=== PATIENT | female | born 1935 | race Caucasian/White ===

== ENCOUNTER → 2016-09-19 | Outpatient (CLI) | payer MEDICARE, BC ==
[~2016-09-19] MED LIST: ATEN1TAB75 PO; ATOR20TA42 PO; B12 SHOTS IM; CENTCHW3 PO; CLON.1 PO; COUM4TAB7 PO; COZA100T PO; FURO1TAB93 PO; LORA0.5T PO; LORTA5 PO; POTA-267 PO; VITA400T14 PO; [UNRECOGNIZED DRUG - CODE] PO
[2016-09-19 11:02] LABS: BLOOD GAS BASE EXCESS 5.3 mmol/L (-2-2); BLOOD GAS CARBOXYHEMOGLOBIN 2.1 % (0-4); BLOOD GAS HCO3 30 mmol/L (22-26); BLOOD GAS METHEMOGLOBIN 0.9 % (0-2); BLOOD GAS O2 HGB SATURATION 90 % (90-100); BLOOD GAS OXYGEN CONTENT 15.8 Vol % (12.0-20.0); BLOOD GAS PCO2 46 mmHG (38-42); BLOOD GAS PO2 69 mmHG (61-120); BLOOD GAS TOTAL HGB 12.4 G/DL (12.0-16.0); CRITICAL VALUE NO; DRAW SITE RT RADIAL; FIO2 21 %; NUMBER OF ARTERIAL PUNCTURES 1; OXYGEN DEVICE ROOM AIR; STAT NO; TEMP CORR TO 98.6; ULNAR PULSE PRESENT
--- NOTE | 2016-09-22 09:25 | RSPPFT ---
DATE OF PROCEDURE: 09/19/16 COMMENTS: VOLUMES DYNAMIC: FVC and FEV1 moderately reduced. STATIC: Unable to be performed. FLOWS: FEV1% mildly reduced; FEF 25-75 moderately reduced. DIFFUSION: Moderately reduced. FLOW VOLUME LOOP: Restrictive and obstructive pattern. IMPRESSION: This appears to be a combined obstructive and restrictive ventilatory defect but she clearly has airways obstruction and a good response to bronchodilator. There is a significant reduction in diffusion as well. Static lung volumes were not able to be performed by the patient.
== END ==
LOC: PHRSP 10:44
PROVIDERS: ATTEND Internal Medicine
DX: R06.02 Shortness of breath (principal); J44.9 Chronic obstructive pulmonary disease, unspecified
CPT/HCPCS: 36600; 82805; 94060; 94620; 94726; 94729

== ENCOUNTER 2016-12-31 18:47 | Inpatient (IN) | payer MEDICARE, BC ==
[~2016-12-31] VITALS: Ht 167.6 cm; Wt 84.4 kg
[2016-12-31 18:55] VITALS: BP 199/71; PULSE 69; RESP 15; TEMP 97.4; O2SAT 96
[2016-12-31] MEDS ORDERED: SODIUM CHLOR 0.9% 1000 ML INJ 1,000 ML IV SCH (19:16)
[2016-12-31] MEDS ORDERED: POTA10TA2 PO (19:22)
[2016-12-31] MEDS ORDERED: COZA100T PO (19:22)
[2016-12-31] MEDS ORDERED: HYDR-3516 PO (19:22)
[2016-12-31] MEDS ORDERED: WARF-58 PO (19:22)
[2016-12-31] MEDS ORDERED: GABA300C5 PO (19:22)
[2016-12-31] MEDS ORDERED: LORA-373 PO (19:22)
[2016-12-31] MEDS ORDERED: CLON0.1T PO (19:22)
[2016-12-31] MEDS ORDERED: MULTTAB67 PO (19:22)
[2016-12-31] MEDS ORDERED: ATEN100T PO (19:22)
[2016-12-31] MEDS ORDERED: ERGO2000 PO (19:22)
[2016-12-31] MEDS ORDERED: WARF-20 PO (19:22)
[2016-12-31] MEDS ORDERED: FURO40TA PO (19:22)
[2016-12-31] MEDS ORDERED: LIPI20TA PO (19:22)
[2016-12-31] MEDS ORDERED: OXYC1TAB63 PO (19:22)
[2016-12-31] MEDS ORDERED: SODIUM CHLORIDE 0.9% FLUSH 10 ML FLUSH IV FLUSH PRN ×2 (19:30→22:30)
[2016-12-31] MEDS ORDERED: MORPHINE SULFATE 4 MG/ML INJ IV PUSH ONE ×2 (19:30→21:30)
[2016-12-31] MEDS ORDERED: ONDANSETRON HCL 4 MG/2 ML VIAL IVP ONE (19:30)
--- NOTE | 2016-12-31 19:36 | PD ---
HPI Chief Complaint: Fall Time Seen by Provider: 19:16 Travel History International Travel<30 days: No Contact w/Intl Traveler<30days: No Traveled to known affect area: No History of Present Illness HPI The patient is an 81-year-old female that was walking her dog at 5:30 PM and stepped on a pine cone, slipped and fell. She complains of pain in her right shoulder, right humerus and right knee. There was no loss of consciousness. Specifically, she denies any neck pain. She did not hit her head. The patient is on Coumadin for atrial fibrillation. She complains of a constant, sharp throbbing pain at 8/10, primarily in her right shoulder.the patient lives alone at home. PFSH Past Medical History Atrial Fibrillation: Yes Cancer: Yes (left breast) Chemotherapy: No Diminished Hearing: Yes (VERY OR[place]SARARMIUT IN RT EAR) Hypertension: Yes Immunizations Current: No Radiation Therapy: Yes Tetanus Vaccination: > 5 Years Influenza Vaccination: Yes ?: Not Menopausal: Yes Past Surgical History Appendectomy: Yes Cholecystectomy: Yes Gynecologic Surgery: Yes (left breast lumpectomy r/t cancer) Hysterectomy: Yes Social History Alcohol Use: No Tobacco Use: No Substance Use: No Allergies-Medications (Allergen,Severity, Reaction): Coded Allergies: diltiazem (Unverified Allergy, Mild, 10/24/16) ezetimibe (Unverified Allergy, Mild, RASH, 10/24/16) hydrocodone (Unverified Allergy, Mild, 10/24/16) ibuprofen (Unverified Allergy, Mild, 10/24/16) levofloxacin (Unverified Allergy, Mild, RASH, 10/24/16) penicillin G (Unverified Allergy, Mild, RASH, 10/24/16) citalopram (Unverified Allergy, Unknown, 10/24/16) sertraline (Unverified Allergy, Unknown, 10/24/16) carvedilol (Unverified Adverse Reaction, Severe, ATRIAL FIBRILLATION EXACERBATION, 10/24/16) amlodipine (Unverified Adverse Reaction, Mild, FEET SWELL, 10/24/16) Uncoded Allergies: CRESTOR (Allergy, Mild, RASH, 06/28/07) NIASPAN (Allergy, Mild, HIVES, 02/16/06) PACERONE (Adverse Reaction, Severe, HAIR FELL OUT, 4/18/08) Reported Meds & Prescriptions Reported Meds & Active Scripts Active Reported Oxycodone-Acetaminophen 5-325 mg Tab 1 Tab PO Q6H PRN Potassium Chloride ER (Potassium Chloride) 10 Meq Tab 10 Meq PO DAILY Multiple Vitamin 1 Tab 1 Tab PO DAILY Cozaar (Losartan Potassium) 100 Mg Tab 100 Mg PO DAILY Lorazepam 0.5 Mg Tab 0.5 Mg PO HS PRN Hydrocodone-Acetaminophen 5-325 mg Tab 1 Tab PO Q6H PRN Gabapentin 300 Mg Cap 300 Mg PO HS Furosemide 40 Mg Tab 40 Mg PO DAILY Vitamin D2 (Ergocalciferol) 2,000 Unit Tab 2,000 Units PO DAILY Clonidine (Clonidine HCl) 0.1 Mg Tab 0.1 Mg PO BID Lipitor (Atorvastatin Calcium) 20 Mg Tab 20 Mg PO HS Atenolol 100 Mg Tab 100 Mg PO DAILY Warfarin 4 Mg Tab 4 Mg PO DAILY Warfarin 3 Mg Tab 3 Mg PO DAILY Review of Systems Except as stated in HPI: all other systems reviewed are Neg Physical Exam Narrative GENERAL: The patient is alert, oriented 3 in moderate apparent distress with her right shoulder discomfort. Her vital signs show blood pressure 199/71 but are otherwise normal. SKIN: Focused skin assessment warm/dry. There is an abrasion over the right knee without any associated bony deformity. HEAD: Atraumatic. Normocephalic. EYES: Pupils equal and round. No scleral icterus. No injection or drainage. ENT: No nasal bleeding or discharge. Mucous membranes pink and moist. NECK: Trachea midline. No JVD. CARDIOVASCULAR: Irregular rate and rhythm. No murmur appreciated. RESPIRATORY: No accessory muscle use. Clear to auscultation. Breath sounds equal bilaterally. GASTROINTESTINAL: Abdomen soft, non-tender, nondistended. Hepatic and splenic margins not palpable. MUSCULOSKELETAL: No obvious deformities. No clubbing. No cyanosis. No edema. There is generalized swelling and tenderness around the right shoulder, particularly at the proximal humerus. There is exquisite tenderness around the proximal humerus as it goes into the shoulder joint. Good capillary refill and pinprick is present distally on the right hand. She has good radial pulses present. NEUROLOGICAL: Awake and alert. No obvious cranial nerve deficits. Motor grossly within normal limits. Normal speech. PSYCHIATRIC: Appropriate mood and affect; insight and judgment normal. Data Data Last Documented VS Vital Signs Date Time Temp Pulse Resp B/P (MAP) Pulse Ox O2 Delivery O2 Flow Rate FiO2 12/31/16 18:55 97.4 69 15 199/71 (113) 96 Orders Orders Humerus (Min 2vws) (12/31/16 19:16) Basic Metabolic Panel (Bmp) (12/31/16 19:16) Complete Blood Count With Diff (12/31/16 19:16) Prothrombin Time / Inr (Pt) (12/31/16 19:16) Urinalysis - C+S If Indicated (12/31/16 19:16) Iv Access Insert/Monitor (12/31/16 19:16) Ecg Monitoring (12/31/16 19:16) Oximetry (12/31/16 19:16) Morphine Inj (Morphine Inj) (12/31/16 19:30) Ondansetron Inj (Zofran Inj) (12/31/16 19:30) Sodium Chlor 0.9% 1000 Ml Inj (Ns 1000 M (12/31/16 19:16) Sodium Chloride 0.9% Flush (Ns Flush) (12/31/16 19:30) Knee, Complete (4vws) (12/31/16 19:30) Shoulder, Limited(2vws) (12/31/16 19:16) Morphine Inj (Morphine Inj) (12/31/16 21:30) Ondansetron Inj (Zofran Inj) (12/31/16 21:30) Splint Or Brace Apply/Monitor (12/31/16 21:27) Labs Laboratory Tests Test 12/31/16 19:30 White Blood Count 10.8 TH/MM3 Red Blood Count 4.80 MIL/MM3 Hemoglobin 13.0 GM/DL Hematocrit 40.0 % Mean Corpuscular Volume 83.3 FL Mean Corpuscular Hemoglobin 27.1 PG Mean Corpuscular Hemoglobin Concent 32.6 % Red Cell Distribution Width 15.2 % Platelet Count 137 TH/MM3 Mean Platelet Volume 9.9 FL Neutrophils (%) (Auto) 76.9 % Lymphocytes (%) (Auto) 10.4 % Monocytes (%) (Auto) 9.5 % Eosinophils (%) (Auto) 0.6 % Basophils (%) (Auto) 2.6 % Neutrophils # (Auto) 8.3 TH/MM3 Lymphocytes # (Auto) 1.1 TH/MM3 Monocytes # (Auto) 1.0 TH/MM3 Eosinophils # (Auto) 0.1 TH/MM3 Basophils # (Auto) 0.3 TH/MM3 CBC Comment DIFF FINAL Differential Comment Prothrombin Time 18.0 SEC Prothromb Time International Ratio 1.6 RATIO Blood Urea Nitrogen 31 MG/DL Creatinine 0.95 MG/DL Random Glucose 130 MG/DL Calcium Level 9.4 MG/DL Sodium Level 139 MEQ/L Potassium Level 4.3 MEQ/L Chloride Level 102 MEQ/L Carbon Dioxide Level 30.8 MEQ/L Anion Gap 6 MEQ/L Estimat Glomerular Filtration Rate 56 ML/MIN MDM Medical Decision Making Medical Screen Exam Complete: Yes Emergency Medical Condition: Yes Medical Record Reviewed: Yes Differential Diagnosis Fracture elbow, fracture shoulder, fracture clavicle, fracture knee, subluxation patella, fracture patella, contusion knee, contusion shoulder- unlikely, dislocation shoulder, contusion elbow Rad Castro MD Dec 31, 2016 19:36
[2016-12-31 19:45] LABS: AUTOMATED NEUTROPHIL # 8.3 TH/MM3 (1.8-7.7); BASOPHIL # 0.3 TH/MM3 (0-0.2); BASOPHIL % 2.6 % (0.0-2.0); EOSINOPHIL # 0.1 TH/MM3 (0-0.4); EOSINOPHIL % 0.6 % (0.0-4.0); HEMO FLAGS DIFF FINAL; LYMPH % 10.4 % (9.0-44.0); LYMPHOCYTE # 1.1 TH/MM3 (1.0-4.8); MEAN CELL VOLUME 83.3 FL (80.0-100.0); MEAN CORPUSCULAR HEMOGLOBIN 27.1 PG (27.0-34.0); MEAN CORPUSCULAR HGB CONC 32.6 % (32.0-36.0); MONO % 9.5 % (0.0-8.0); NEUT % 76.9 % (16.0-70.0); PLATELET COUNT 137 TH/MM3 (150-450); RED CELL DISTRIBUTION WIDTH 15.2 % (11.6-17.2); WHITE BLOOD COUNT 10.8 TH/MM3 (4.0-11.0)
[2016-12-31 19:57] LABS: BICARBONATE 30.8 MEQ/L (21.0-32.0)
[2016-12-31 19:58] LABS: INTERNATIONAL NORMALIZED RATIO 1.6 RATIO
[2016-12-31 20:05] LABS: POTASSIUM 4.3 MEQ/L (3.5-5.1)
--- NOTE | 2016-12-31 20:59 | RADRPT ---
EXAM DATE/TIME: 12/31/2016 19:26 [facility] COMPARISON: No previous studies available for comparison. INDICATIONS : Trauma, fall. MEDICAL HISTORY : None. SURGICAL HISTORY : None. ENCOUNTER: Initial ACUITY: 1 day PAIN SCORE: 10/10 LOCATION: Right proximal humerus. FINDINGS: Comminuted fracture through the proximal humerus predominantly involving the humeral neck. No disloca tion. Bones osteopenic. No other humeral fractures. CONCLUSION: 1. Comminuted proximal humeral fracture with mild to moderate displacement. Moisés Levy MD on December 31, 2016 at 20:57 Board Certified Radiologist. This report was verified electronically.
--- NOTE | 2016-12-31 21:00 | RADRPT ---
EXAM DATE/TIME: 12/31/2016 19:56 [facility] COMPARISON: No previous studies available for comparison. INDICATIONS : Trauma, fall. MEDICAL HISTORY : None. SURGICAL HISTORY : None. ENCOUNTER: Initial ACUITY: 1 day PAIN SCORE: 10/10 LOCATION: Right shoulder. FINDINGS: Two view examination of the right shoulder demonstrates comminuted fracture of proximal humerus predo minantly involving the humeral neck with mild to moderate displacement. No dislocation of the humeral head identified. No other fractures are seen. Bones osteopenic. CONCLUSION: 1. Comminuted proximal right humeral fracture. Moisés Levy MD on December 31, 2016 at 20:58 Board Certified Radiologist. This report was verified electronically.
--- NOTE | 2016-12-31 21:01 | RADRPT ---
EXAM DATE/TIME: 12/31/2016 19:56 [facility] COMPARISON: No previous studies available for comparison. INDICATIONS : Trauma, fall. MEDICAL HISTORY : None. SURGICAL HISTORY : None. ENCOUNTER: Initial ACUITY: 1 day PAIN SCORE: 2/10 LOCATION: Right knee. FINDINGS: Four view examination of the right knee demonstrates no evidence of fracture or dislocation. Bony mi neralization is decreased. The articular surfaces are intact. The suprapatellar soft tissues have a normal configuration. CONCLUSION: 1. Osteopenia. No acute fracture. Moisés Levy MD on December 31, 2016 at 20:59 Board Certified Radiologist. This report was verified electronically.
[2016-12-31] MEDS ORDERED: ONDANSETRON HCL 4 MG/2 ML VIAL IV ONE (21:30)
[2016-12-31 21:45] VITALS: BP 171/73; PULSE 79; RESP 20; O2SAT 99
[2016-12-31] MEDS: SODIUM CHLOR 0.9% 1000 ML INJ 1,000 ML IV SCH (22:23)
[2016-12-31] MEDS ORDERED: BISACODYL 10 MG SUPP RECTAL PRN (22:30)
[2016-12-31] MEDS ORDERED: SENNOSIDES 8.6 MG TAB PO PRN (22:30)
[2016-12-31] MEDS ORDERED: ACETAMINOPHEN 325 MG TAB PO PRN (22:30)
[2016-12-31] MEDS ORDERED: LACTULOSE SYRUP 20 GM/30 ML CUP PO PRN (22:30)
[2016-12-31] MEDS ORDERED: ONDANSETRON HCL 4 MG/2 ML VIAL IVP PRN (22:30)
[2016-12-31] MEDS ORDERED: LORazepam 0.5 MG TAB PO PRN (22:30)
[2016-12-31] MEDS ORDERED: MAGNESIUM HYDROXIDE SUSP 30 ML CUP PO PRN (22:30)
[2016-12-31] MEDS ORDERED: MORPHINE SULFATE 2 MG/ML INJ IV PRN (23:00)
--- NOTE | 2016-12-31 23:02 | RADRPT ---
EXAM DATE/TIME: 12/31/2016 22:26 [facility] COMPARISON: No previous studies available for comparison. INDICATIONS : Right elbow pain. MEDICAL HISTORY : None. SURGICAL HISTORY : None. ENCOUNTER: Initial ACUITY: 1 day PAIN SCORE: 6/10 LOCATION: Right elbow. FINDINGS: Two view examination of the right elbow demonstrates no soft tissue swelling, joint effusion, fractur e or dislocation. Bony mineralization is normal. CONCLUSION: 1. Exam was performed at 2 obliquities but no displaced fracture is seen. Moisés Levy MD on December 31, 2016 at 22:59 Board Certified Radiologist. This report was verified electronically.
[2017-01-01] VITALS (8 sets, daily range): BP systolic 107–189; BP diastolic 50–80; PULSE 72–88; RESP 17–20; TEMP 96.5–97.4; O2SAT 92–96
[2017-01-01 00:37] LABS: BLOOD, URINE TRACE (NEG); GLUCOSE,URINE NEG (NEG); KETONE, URINE NEG (NEG); NITRITE,URINE NEG (NEG); PH, URINE 5.5 (5.0-8.5)
[2017-01-01 00:59] LABS: URINE COLOR YELLOW (YELLW/STRAW)
[2017-01-01 01:00] LABS: MUCUS URINE FEW /lpf (OCC); SQUAMOUS EPITHELIAL CELL URINE 0-5 /hpf (0-5)
[2017-01-01 01:01] LABS: RBC, URINE 0-3 /hpf (0-3)
[2017-01-01 01:02] LABS: COMMENT (UR) CULT NOT INDICATED; CULTURE IF INDICATED CULT NOT INDICATED
[2017-01-01] MEDS ORDERED: INSULIN HUMAN REGULAR 1,000 UNITS/10 ML VIAL SQ PRN (01:30)
[2017-01-01] MEDS ORDERED: CHLORHEXIDINE GLUCONATE 2 % 1 PACK (2 CLOTHS) TOPICAL PRN (01:30)
[2017-01-01] MEDS ORDERED: SODIUM CHLORID 0.9% 500 ML IV PRN (01:30)
[2017-01-01] MEDS ORDERED: LACTATED RINGER'S 1000 ML IV PRN (01:30)
[2017-01-01] MEDS ORDERED: POVIDONE IODINE 5% (ANTISEPSIS KIT) 4 APPLICATIONS EACH NARE PRN (01:30)
--- NOTE | 2017-01-01 02:15 | HHI.HP ---
[facility] Service [facility] Primary Care Physician Stephen Baker M.D. Admission Diagnosis comminuted fracture right proximal humerus, intractable pain, warfar Diagnoses: (1) Fracture of proximal end of right humerus Chief Complaint: right upper arm/shoulder pain, right knee pain Travel History International Travel<30 Days: No Contact w/Intl Traveler <30 Da: No Traveled to Known Affected Are: No History of Present Illness Ms. Mensah is a pleasant 81 y/o female who was walking her dog and tripped on a pine cone and landed on her right side on 12/31/16 at around 5 p.m. with subsequent severe sharp right arm and right knee pain causing her to be unable to get up. She reports pain is currently managed with PRN Morphine IV but worsens with any movement. Right shoulder and humerus x-ray at [place] [facility] showed comminuted proximal humerus fracture. The patient has a history of atrial fibrillation on Coumadin. INR is 1.6 on admission. The patient is seen in her hospital room after transfer from [place]. The patient is very upset about the experience she had in the [place] emergency room with the physician there. She states that she told him she wanted to be transferred to [facility] where all of her physicians are and he told her she had to come up to the main [facility] because he already had a bed for her here. Her PCP, Dr. Baker, does rounds on his own patients at [facility] and knows her very well. She wants to contact his office in the morning to work on a transfer. She states that she is going to refuse surgical intervention here and wants to be allowed to eat. She says she is very hungry. She is alert and oriented, cognitively intact, and capacitated to make her own medical decisions. She is refusing NPO status now and wants me to cancel her orthopedic surgeon consultation. Review of Systems Except as stated in HPI: all other systems reviewed are Neg Past Family Social History Past Medical History Right ear hearing impairment Atrial fibrillation on Coumadin Hypertension Right breast cancer - status post surgical resection and radiation . Past Surgical History Hysterectomy Appendectomy Cholecystectomy Right breast biopsy and lumpectomy Reported Medications Reported Meds & Active Scripts Active Reported Oxycodone-Acetaminophen 5-325 mg Tab 1 Tab PO Q6H PRN Potassium Chloride ER (Potassium Chloride) 10 Meq Tab 10 Meq PO DAILY Multiple Vitamin 1 Tab 1 Tab PO DAILY Cozaar (Losartan Potassium) 100 Mg Tab 100 Mg PO DAILY Lorazepam 0.5 Mg Tab 0.5 Mg PO HS PRN Hydrocodone-Acetaminophen 5-325 mg Tab 1 Tab PO Q6H PRN Gabapentin 300 Mg Cap 300 Mg PO HS Furosemide 40 Mg Tab 40 Mg PO DAILY Vitamin D2 (Ergocalciferol) 2,000 Unit Tab 2,000 Units PO DAILY Clonidine (Clonidine HCl) 0.1 Mg Tab 0.1 Mg PO BID Lipitor (Atorvastatin Calcium) 20 Mg Tab 20 Mg PO HS Atenolol 100 Mg Tab 100 Mg PO DAILY Warfarin 4 Mg Tab 4 Mg PO DAILY Warfarin 3 Mg Tab 3 Mg PO DAILY . Allergies: Coded Allergies: diltiazem (Unverified Allergy, Mild, 10/24/16) ezetimibe (Unverified Allergy, Mild, RASH, 10/24/16) hydrocodone (Unverified Allergy, Mild, 10/24/16) ibuprofen (Unverified Allergy, Mild, 10/24/16) levofloxacin (Unverified Allergy, Mild, RASH, 10/24/16) penicillin G (Unverified Allergy, Mild, RASH, 10/24/16) citalopram (Unverified Allergy, Unknown, 10/24/16) sertraline (Unverified Allergy, Unknown, 10/24/16) carvedilol (Unverified Adverse Reaction, Severe, ATRIAL FIBRILLATION EXACERBATION, 10/24/16) amlodipine (Unverified Adverse Reaction, Mild, FEET SWELL, 10/24/16) Uncoded Allergies: CRESTOR (Allergy, Mild, RASH, 06/28/07) NIASPAN (Allergy, Mild, HIVES, 02/16/06) PACERONE (Adverse Reaction, Severe, HAIR FELL OUT, 06/28/07) Active Ordered Medications Current Medications Morphine Sulfate (Morphine Inj) 4 mg ONCE ONCE IV PUSH Last administered on t 19:45; Start 12/31/16 at 19:30; Stop 12/31/16 at 19:31; Status DC Ondansetron HCl (Zofran Inj) 4 mg ONCE ONCE IVP Last administered on 19:44; Start 12/31/16 at 19:30; Stop 12/31/16 at 19:31; Status DC Sodium Chloride 1,000 ml @ 1,000 mls/hr Q1H IV Last administered on 19:44; Start 12/31/16 at 19:16; Stop 12/31/16 at 20:15; Status DC Sodium Chloride (NS Flush) 2 ml UNSCH PRN IV FLUSH FLUSH AFTER USING IV ACCESS Last administered on 12/31/16 19:45; Start 12/31/16 at 19:30 Morphine Sulfate (Morphine Inj) 4 mg ONCE ONCE IV PUSH Last administered on 21:32; Start 12/31/16 at 21:30; Stop 12/31/16 at 21:31; Status DC Ondansetron HCl (Zofran Inj) 4 mg ONCE ONCE IV Last administered on 21:32; Start 12/31/16 at 21:30; Stop 12/31/16 at 21:31; Status DC Sodium Chloride 1,000 ml @ 100 mls/hr Q10H IV Last administered on 12/31/16 22:23; Start 12/31/16 at 22:23 Sodium Chloride (NS Flush) 2 ml UNSCH PRN IV FLUSH FLUSH AFTER USING IV ACCESS ; Start 12/31/16 at 22:30 Sodium Chloride (NS Flush) 2 ml BID IV FLUSH ; Start 01/01/17 at 09:00 Ondansetron HCl (Zofran Inj) 4 mg Q6H PRN IVP NAUSEA OR VOMITING; Start at 22:30 Acetaminophen (Tylenol) 650 mg Q6H PRN PO FEVER/PAIN SCALE 1 TO 2; Start 12/31 at 22:30 Oxycodone/ Acetaminophen (Percocet 5-325 Mg) 1 tab Q6H PRN PO PAIN SCALE 3 TO 5 Last administered on 01/01/17 02:22; Start 12/31/16 at 22:30 Morphine Sulfate (Morphine Inj) 2 mg Q3H PRN IV PAIN 6-10 Last administered on 01/01/17 00:13; Start 12/31/16 at 23:00 Senna/Docusate Sodium (Deja-Colace) 1 tab BID PO ; Start 01/01/17 at 09:00 Magnesium Hydroxide (Milk Of Magnesia Liq) 30 ml Q12H PRN PO Mild constipation ; Start 12/31/16 at 22:30 Sennosides (Senokot) 17.2 mg Q12H PRN PO Moderate constipation; Start at 22:30 Bisacodyl (Dulcolax Supp) 10 mg DAILY PRN RECTAL SEVERE CONSITIPATION; Start 12/31/16 at 22:30 Lactulose (Lactulose Liq) 30 ml DAILY PRN PO SEVERE CONSITIPATION; Start 12/31 at 22:30 Atenolol (Tenormin) 100 mg DAILY PO ; Start 01/01/17 at 09:00 Atorvastatin Calcium (Lipitor) 20 mg HS PO ; Start 01/01/17 at 21:00 Clonidine (Catapres) 0.1 mg BID PO ; Start 01/01/17 at 09:00 Furosemide (Lasix) 40 mg DAILY PO ; Start 01/01/17 at 09:00 Gabapentin (Neurontin) 300 mg HS PO ; Start 01/01/17 at 21:00 Lorazepam (Ativan) 0.5 mg HS PRN PO ANXIETY AND/OR INSOMNIA Last administered on 01/01/17t 00:13; Start 12/31/16 at 22:30 Losartan Potassium (Cozaar) 100 mg DAILY PO ; Start 01/01/17 at 09:00 Ergocalciferol (Calciferol Liq) 2,000 units DAILY PO ; Start 01/01/17 at 09:00 Multivitamins (Theragran) 1 tab DAILY PO ; Start 01/01/17 at 09:00 Lactated Ringer's 1,000 ml @ 30 mls/hr Q24H PRN IV SEE LABEL COMMENTS; Start 01/01/17 at 01:30; Stop 01/04/17 at 01:29 Sodium Chloride 500 ml @ 30 mls/hr [id number] PRN IV SEE LABEL COMMENTS; Start at 01:30; Stop 01/04/17 at 01:29 Povidone Iodine (Betadine 5% Antisepsis Kit) 1 applic ENVIRONMENTAL ASSOCIATE PRN EACH NARE SEE LABEL COMMENTS; Start 01/01/17 at 01:30; Stop 01/04/17 at 01:29 Chlorhexidine Gluconate (Chlorhexidine 2% Cloth) 3 pack ENVIRONMENTAL ASSOCIATE PRN TOPICAL SEE LABEL COMMENTS; Start 01/01/17 at 01:30; Stop 01/04/17 at 01:29 Insulin Human Regular (NovoLIN R INJ) See Protocol Table ... ENVIRONMENTAL ASSOCIATE PRN SQ SEE PROTOCOL TABLE; Start 01/01/17 at 01:30; Stop 01/04/17 at 01:29 . Family History Sister with Hodgkin's lymphoma, age 34 . Social History Retired [employer] worker Smoked 1 1/2 PPD for 20 years, quit 1973 ETOH: none since 1979 . Physical Exam Vital Signs Vital Signs Date Time Temp Pulse Resp B/P (MAP) Pulse Ox O2 Delivery O2 Flow Rate FiO2 01/01/17 00:30 74 20 189/79 (115) 97 Nasal Cannula 2.00 01/01/17 00:20 20 12/31/16 21:45 79 20 171/73 (105) 99 12/31/16 20:00 70 20 98 12/31/16 18:55 97.4 69 15 199/71 (113) 96 Physical Exam GENERAL: This is a well-nourished, well-developed patient, in no apparent distress. SKIN: No rashes. Cool and dry. Right proximal humerus area with extensive dark bruising. HEAD: Atraumatic. Normocephalic. EYES: No scleral icterus. No injection or drainage. ENT: Nose without bleeding, purulent drainage. NECK: Trachea midline. No JVD. CARDIOVASCULAR: Regular rate and rhythm without murmurs, gallops, or rubs. RESPIRATORY: Clear to auscultation. Breath sounds equal bilaterally. No wheezes , rales, or rhonchi. GASTROINTESTINAL: Abdomen soft, non-tender, nondistended. No guarding. MUSCULOSKELETAL: Extremities without clubbing, cyanosis. No calf tenderness. Right upper arm with pain with minimal movement, swelling noted, still has sensation and movement in fingers and capillary refill is less than 3 seconds. NEUROLOGICAL: Awake and alert. Motor and sensory grossly within normal limits. Normal speech. . Laboratory Laboratory Tests Test 12/31/16 19:30 White Blood Count 10.8 Red Blood Count 4.80 Hemoglobin 13.0 Hematocrit 40.0 Mean Corpuscular Volume 83.3 Mean Corpuscular Hemoglobin 27.1 Mean Corpuscular Hemoglobin Concent 32.6 Red Cell Distribution Width 15.2 Platelet Count 137 Mean Platelet Volume 9.9 Neutrophils (%) (Auto) 76.9 Lymphocytes (%) (Auto) 10.4 Monocytes (%) (Auto) 9.5 Eosinophils (%) (Auto) 0.6 Basophils (%) (Auto) 2.6 Neutrophils # (Auto) 8.3 Lymphocytes # (Auto) 1.1 Monocytes # (Auto) 1.0 Eosinophils # (Auto) 0.1 Basophils # (Auto) 0.3 CBC Comment DIFF FINAL Differential Comment Prothrombin Time 18.0 Prothromb Time International Ratio 1.6 Blood Urea Nitrogen 31 Creatinine 0.95 Random Glucose 130 Calcium Level 9.4 Sodium Level 139 Potassium Level 4.3 Chloride Level 102 Carbon Dioxide Level 30.8 Anion Gap 6 Estimat Glomerular Filtration Rate 56 Result Diagram: 12/31/16192912/31/161929 Imaging Last Impressions Elbow X-Ray 12/31/162200 Signed Impressions: Service Date/Time: Saturday, December 31, 2016 22:26 - CONCLUSION: 1. Exam was performed at 2 obliquities but no displaced fracture is seen. Moisés Levy MD Knee X-Ray 12/31/161929 Signed Impressions: Service Date/Time: Saturday, December 31, 2016 19:56 - CONCLUSION: 1. Osteopenia. No acute fracture. Moisés Levy MD Shoulder X-Ray 12/31/161915 Signed Impressions: Service Date/Time: Saturday, December 31, 2016 19:56 - CONCLUSION: 1. Comminuted proximal right humeral fracture. Moisés Levy MD Humerus X-Ray 12/31/161915 Signed Impressions: Service Date/Time: Saturday, December 31, 2016 19:26 - CONCLUSION: 1. Comminuted proximal humeral fracture with mild to moderate displacement. Moisés Levy MD . Caprini VTE Risk Assessment Caprini VTE Risk Assessment: Mod/High Risk (score >= 2) Caprini Risk Assessment Model Point Value = 1 Point Value = 2 Point Value = 3 Point Value = 5 Age 41-60 Minor surgery BMI > 25 kg/m2 Swollen legs Varicose veins or History of unexplained or recurrent spontaneous Oral contraceptives or hormone replacement Sepsis (< 1 month) Serious lung disease, including pneumonia (< 1 month) Abnormal pulmonary function Acute myocardial infarction Congestive heart failure (< 1 month) History of inflammatory bowel disease Medical patient at bed rest Age 61-74 Arthroscopic surgery Major open surgery (> 45 min) Laparoscopic surgery (> 45 min) Malignancy Confined to bed (> 72 hours) Immobilizing plaster cast Central venous access Age >= 75 History of VTE Family history of VTE Factor V Leiden Prothrombin [id number] Lupus anticoagulant Anticardiolipin antibodies Elevated serum homocysteine Heparin-induced thrombocytopenia Other congenital or acquired thrombophilia Stroke (< 1 month) Elective arthroplasty Hip, pelvis, or leg fracture Acute spinal cord injury (< 1 month) Prophylaxis Regimen Total Risk Factor Score Risk Level Prophylaxis Regimen 0-1 Low Early ambulation 2 Moderate Order ONE of the following: *Sequential Compression Device (SCD) *Heparin 5000 units SQ BID 3-4 Higher Order ONE of the following medications: *Heparin 5000 units SQ TID *Enoxaparin/Lovenox 40 mg SQ daily (WT < 150 kg, CrCl > 30 mL/min) *Enoxaparin/Lovenox 30 mg SQ daily (WT < 150 kg, CrCl > 10-29 mL/min) *Enoxaparin/Lovenox 30 mg SQ BID (WT < 150 kg, CrCl > 30 mL/min) AND/OR *Sequential Compression Device (SCD) 5 or more Highest Order ONE of the following medications: *Heparin 5000 units SQ TID (Preferred with Epidurals) *Enoxaparin/Lovenox 40 mg SQ daily (WT < 150 kg, CrCl > 30 mL/min) *Enoxaparin/Lovenox 30 mg SQ daily (WT < 150 kg, CrCl > 10-29 mL/min) *Enoxaparin/Lovenox 30 mg SQ BID (WT < 150 kg, CrCl > 30 mL/min) AND *Sequential Compression Device (SCD) Assessment and Plan Problem List: (1) Fracture of proximal end of right humerus ICD Code: S42.201A - Unspecified fracture of upper end of right humerus, initial encounter for closed fracture Assessment and Plan Fracture of proximal end of right humerus - Patient desires transfer to [facility] for management - Case management consulted - Orthopedic surgery consult canceled at patient's request - Patient refuses nothing by mouth status and a heart healthy diet has been ordered home medications restarted - Coumadin on hold for possible surgical intervention at [facility] if patient can be transferred. DVT prophylaxis - SCDs/TEDs . Discussed Condition With Patient, Dr. Jaquez, and RN . Physician Certification 2 Midnight Certification Type: Admission for Inpatient Services Order for Inpatient Services The services are ordered in accordance with Medicare regulations or non- Medicare payer requirements, as applicable. In the case of services not specified as inpatient-only, they are appropriately provided as inpatient services in accordance with the 2-midnight benchmark. Estimated LOS (days): 2 days is the estimated time the patient will need to remain in the hospital, assuming treatment plan goals are met and no additional complications. Post-Hospital Plan: Other (specify) Bibi Tran Jan 01, 2017 02:15
[2017-01-01] MEDS: oxyCODONE/ACETAMINOPHEN 5 MG/325 MG TAB PO PRN ×3 (02:22→19:15)
[2017-01-01] MEDS ORDERED: ATENOLOL 100 MG TAB PO SCH (09:00)
[2017-01-01] MEDS: ERGOCALCIFEROL (VIT D2) 8,000 UNITS/ML 60 ML BTL PO SCH (09:00)
[2017-01-01] MEDS: SODIUM CHLORIDE 0.9% FLUSH 10 ML FLUSH IV FLUSH SCH ×2 (09:00→21:00)
[2017-01-01] MEDS: FUROSEMIDE 40 MG TAB PO SCH (09:00)
[2017-01-01] MEDS: DOCUSATE SODIUM 50 MG/SENNA 8.6 MG TAB PO SCH ×2 (09:07→21:57)
[2017-01-01] MEDS: MULTIVITAMIN TAB PO SCH (09:07)
[2017-01-01] MEDS: LOSARTAN 50 MG TAB PO SCH (09:10)
[2017-01-01] MEDS: cloNIDine HCL 0.1 MG TAB PO SCH ×2 (09:12→21:00)
[2017-01-01] MEDS: SODIUM CHLOR 0.9% 1000 ML INJ 1,000 ML IV SCH (09:18)
--- NOTE | 2017-01-01 12:58 | MB ---
cc: ZEESHAN OWUSU DATE OF CONSULTATION 12/31/2016 DATE OF CONSULTATION 01/01/2017 REASON FOR CONSULTATION Right proximal humerus fracture. CONSULTING PHYSICIAN Dr. Jaquez. HISTORY Ms. Marianela Mensah is an 81-year-old female who was walking her dog yesterday. She tripped on a pine cone and lost her balance. She landed on her right side. She had immediate right shoulder pain. She presented to the emergency room where x-rays revealed a right proximal humerus fracture. She is currently awake and alert on the orthopedic floor. Her only complaint is her right shoulder. Her pain is worse with movement and is improved with rest. She denies any dizziness, syncope or loss of consciousness. PAST MEDICAL HISTORY ILLNESSES 1. Hearing impairment. 2. Atrial fibrillation. 3. Hypertension. 4. History of breast cancer. PAST SURGICAL HISTORY 1. Hysterectomy. 2. Appendectomy. 3. Cholecystectomy. 4. Right breast lumpectomy. MEDICATIONS 1. Percocet. 2. Potassium. 3. Cozaar. 4. Gabapentin. 5. Lasix. 6. Vitamin D. 7. Clonidine. 8. Lipitor. 9. Atenolol. 10. Coumadin. ALLERGIES Please see list of allergies which includes - DILTIAZEM. CRESTOR. NIASPAN. PACERONE AMLODIPINE. CARVEDILOL. CITALOPRAM. IBUPROFEN. LEVOFLOXACIN. PENICILLIN. SERTRALINE. FAMILY HISTORY Positive for lymphoma in a sister. SOCIAL HISTORY The patient has a history of smoking but quit in 1973. She denies alcohol or drug use. REVIEW OF SYSTEMS The patient denies headache, visual changes, neck pain, chest pain, shortness of breath, abdominal pain, nausea or vomiting or recent weight loss. No numbness or tingling of the extremities. She complains of right shoulder pain. Pain is worse with movement. PHYSICAL EXAMINATION GENERAL: The patient is a pleasant 81-year-old female in no acute distress. She is awake and alert. She is alert and oriented x3. She appears well-developed, well-nourished. VITAL SIGNS: Temperature 96.5, pulse 86, respirations 17, blood pressure 136/67, O2 sat 96% on 2 liters via nasal cannula. HEAD: The patient is normocephalic. Pupils are equal. NECK: Soft, nontender. Trachea is midline. ABDOMEN: Soft, nontender, nondistended. EXTREMITIES: Examination of the right arm reveals swelling and bruising around her right shoulder. She has pain with any shoulder motion. She has no tenderness to her elbow, wrist or finger. She has intact sensation in all fingers. He has good capillary refill in all fingers. Sensation is intact in all fingers. Examination of left arm reveals no pain with shoulder, elbow or wrist motion. Skin is intact. Radial pulse is palpable. Sensation is intact. Radial pulses palpable. Examination of bilateral lower extremities reveals no significant pain with hip, knee or ankle motion. Sensation is intact in both feet. Dorsalis pedis pulses are palpable. She has a small abrasion over her anterior right knee pain. X-RAYS X-rays of the right shoulder were reviewed. X-rays reveal a mildly comminuted, mildly displaced right proximal humerus fracture. IMPRESSION 1. Postmenopausal osteoporosis. 2. Right proximal humerus fracture. 3. Hypertension. 4. Atrial fibrillation. PLAN The treatment options were discussed with the patient. At this point I would recommend nonsurgical treatment. The fracture is relatively well-aligned. I would recommend a sling and swath. She should not do any active motion of her right arm. She will need followup x-rays in approximately two weeks. All questions were answered. A mid-level provider in my office, nurse practitioner or PA, may see this patient on a follow-up basis and continue to implement the objective of this plan including: Starting or adjusting medications, injections of muscle, tendon, bursa or joints, cast application, orthotic or brace application, physical therapy, further radiographic studies including x-ray, MRI, CT, ultrasounds or bone scan, vascular studies, neurologic studies, or other specialist consultations, and proceeding with surgical management as appropriate. MD DORETHA Devine/JOSE /12:20 PM /12:42 PM
[2017-01-01] MEDS ORDERED: OXYC1TAB63 PO (13:51)
--- NOTE | 2017-01-01 13:55 | HHI.PR ---
Subjective Remarks Follow-up orthopedic injury. Pain increased with movement. Denies numbness. Patient lives alone. Discussed with RN Objective Vitals Vital Signs Date Time Temp Pulse Resp B/P (MAP) Pulse Ox O2 Delivery O2 Flow Rate FiO2 01/01/17 12:00 96.5 86 17 136/67 (90) 96 01/01/17 07:55 96.5 88 20 143/63 (89) 95 01/01/17 03:49 Nasal Cannula 2.00 01/01/17 03:45 96.6 85 18 140/78 (98) 96 01/01/17 03:22 17 01/01/17 00:54 96.6 87 18 187/80 (115) 94 01/01/17 00:30 74 20 189/79 (115) 97 Nasal Cannula 2.00 01/01/17 00:20 20 12/31/16 21:45 79 20 171/73 (105) 99 12/31/16 20:00 70 20 98 12/31/16 18:55 97.4 69 15 199/71 (113) 96 I/O 12/31/16 12/31/16 12/31/16 01/01/17 01/01/17 01/01/17 07:00 15:00 23:00 07:00 15:00 23:00 Intake Total 1000.5 ml Output Total 200 ml Balance 800.5 ml Intake Oral 0 ml IV Total 1000.5 ml Output Urine Total 200 ml # Voids 2 # Bowel Movements 0 Result Diagram: 12/31/16192912/31/161929 Imaging Last Impressions Elbow X-Ray 12/31/162200 Signed Impressions: Service Date/Time: Saturday, December 31, 2016 22:26 - CONCLUSION: 1. Exam was performed at 2 obliquities but no displaced fracture is seen. Moisés Levy MD Knee X-Ray 12/31/161929 Signed Impressions: Service Date/Time: Saturday, December 31, 2016 19:56 - CONCLUSION: 1. Osteopenia. No acute fracture. Moisés Levy MD Shoulder X-Ray 12/31/161915 Signed Impressions: Service Date/Time: Saturday, December 31, 2016 19:56 - CONCLUSION: 1. Comminuted proximal right humeral fracture. Moisés Levy MD Humerus X-Ray 12/31/161915 Signed Impressions: Service Date/Time: Saturday, December 31, 2016 19:26 - CONCLUSION: 1. Comminuted proximal humeral fracture with mild to moderate displacement. Moisés Levy MD Objective Remarks GENERAL: This is a well-nourished, well-developed patient, in no apparent distress. SKIN: No rashes. Cool and dry. Right proximal humerus area with extensive dark bruising. HEAD: Atraumatic. Normocephalic. EYES: No scleral icterus. No injection or drainage. ENT: Nose without bleeding, purulent drainage. NECK: Trachea midline. No JVD. CARDIOVASCULAR: Irregularly irregular without murmur RESPIRATORY: Clear to auscultation. Breath sounds equal bilaterally. No wheezes , rales, or rhonchi. GASTROINTESTINAL: Abdomen soft, non-tender, nondistended. No guarding. MUSCULOSKELETAL: Extremities without clubbing, cyanosis. No calf tenderness. Right upper arm with pain with minimal movement, swelling noted, still has sensation and movement in fingers and capillary refill is less than 3 seconds. NEUROLOGICAL: Awake and alert. Motor and sensory grossly within normal limits. Normal speech. Procedures none A/P Problem List: (1) Fracture of proximal end of right humerus ICD Code: S42.201A - Unspecified fracture of upper end of right humerus, initial encounter for closed fracture Assessment and Plan Fracture of proximal end of right humerus. Orthopedic surgery recommended nonsurgical management. Non-weightbearing. Elevation of right upper extremity with sling and swath. Pain management with Lortab counseled regarding narcotics. Outpatient follow-up. PT, OT and case management consults A. fib. Restart Coumadin keep INR between 2 and 3 Chronic medical conditions of hypertension and hyperlipidemia. Stable continue home medications. Hyperglycemia. This is nonfasting. Obtain fasting glucose Mild thrombocytopenia. Outpatient follow-up DVT prophylaxis - SCDs/TEDs. Coumadin Discharge Planning Discharge patient to home with PT, OT and visiting nurse Condition on discharge: Improved Regular Diet as tolerated Ad Delmy activity. NWB RUE Rx written: Lortab Follow-up with primary care physician and ortho 1 week Chris Corley MD Jan 01, 2017 13:55
--- NOTE | 2017-01-01 13:56 | HHI.FF ---
Face to Face Verification Diagnosis: (1) Fracture of proximal end of right humerus Physical Therapy Order: Evaluate and Treat, Improve ambulation Occupational Therapy Order: Evaluate and Treat, Improve ADL, Fine motor coordination Home Health Nursing Order: Medical education Signs/symptoms of disease process Medication education-adverse effect Nursing assessment with vital signs I have seen patient Marianela Mensah on 01/01/17. My clinical findings support the need for the requested home health care services because: Ltd mobility - disease progression Deconditioned w/ increased weakness I certify that my clinical findings support that this patient is homebound because: Unsteady gait/balance Unsafe to leave home unassisted Chris Corley MD Jan 01, 2017 13:56
--- NOTE | 2017-01-01 13:56 | HHI.DCPOC ---
Discharge Care Plan Diagnosis: (1) Fracture of proximal end of right humerus Your Health Problems Are: Difficulty with ADL Exercise Tolerance Goals to Promote Your Health * To prevent worsening of your condition and complications * To maintain your health at the optimal level Directions to Meet Your Goals Take your medications as prescribed Follow your dietary instruction Follow activity as directed Keep your appointments as scheduled Take your immunizations and boosters as scheduled If your symptoms worsen call your PCP, if no PCP go to Urgent Care Center or Emergency Room Smoking is Dangerous to Your Health. Avoid second hand smoke Call the 24-hour hour crisis hotline for domestic abuse at Chris Corley MD Jan 01, 2017 13:56
[2017-01-01] MEDS ORDERED: WARFARIN SOD 5 MG TAB PO ONE (16:00)
[2017-01-01] MEDS: ATORVASTATIN 20 MG TAB PO SCH (21:56)
[2017-01-01] MEDS: GABAPENTIN 300 MG CAP PO SCH (21:56)
[2017-01-01] MEDS: ATENOLOL 100 MG TAB PO SCH (21:57)
[2017-01-02] VITALS (7 sets, daily range): BP systolic 97–158; BP diastolic 50–87; PULSE 75–85; RESP 17–18; TEMP 96–99.6; O2SAT 93–96
--- NOTE | 2017-01-02 07:12 | PD.ORT.PN ---
Subjective Subjective Remarks s/p fall at home right shoulder pain. states rolled over on it last night and cause pain Objective Vitals Vital Signs Date Time Temp Pulse Resp B/P (MAP) Pulse Ox O2 Delivery O2 Flow Rate FiO2 01/02/17 01:01 97.8 85 17 126/66 (86) 93 01/01/17 21:31 96 Nasal Cannula 2.00 01/01/17 20:00 97.1 83 18 160/72 (101) 92 01/01/17 16:00 97.4 72 17 107/50 (69) 96 01/01/17 12:00 96.5 86 17 136/67 (90) 96 01/01/17 07:55 96.5 88 20 143/63 (89) 95 I/O 01/01/17 01/01/17 01/01/17 01/02/17 01/02/17 01/02/17 07:00 15:00 23:00 07:00 15:00 23:00 Intake Total 1000.5 ml 240 ml Output Total 200 ml Balance 800.5 ml 240 ml Intake Oral 0 ml 240 ml IV Total 1000.5 ml Output Urine Total 200 ml # Voids 2 2 2 # Bowel Movements 0 0 Result Diagram: 12/31/16192912/31/161929 Objective Remarks RUE: +sling/swathe. nvi Assessment & Plan Assessment and Plan 1) Right Proximal humerus Fx - nonop -NWB -maintain sling/swathe -pain control -patient lives alone and will need SNF - for rehab placement -ortho cleared for DC to SNF once arranged -f/u with Dr Albarado or PA for repeat xrays in 2 weeks Baldo Rubin Jan 02, 2017 07:12
[2017-01-02] MEDS: MULTIVITAMIN TAB PO SCH (08:03)
[2017-01-02] MEDS: FUROSEMIDE 40 MG TAB PO SCH (08:03)
[2017-01-02] MEDS: LOSARTAN 50 MG TAB PO SCH (08:03)
[2017-01-02] MEDS: DOCUSATE SODIUM 50 MG/SENNA 8.6 MG TAB PO SCH ×2 (08:03→21:17)
[2017-01-02] MEDS: oxyCODONE/ACETAMINOPHEN 5 MG/325 MG TAB PO PRN ×2 (08:03→21:15)
[2017-01-02] MEDS: cloNIDine HCL 0.1 MG TAB PO SCH ×2 (08:03→21:00)
[2017-01-02] MEDS: SODIUM CHLORIDE 0.9% FLUSH 10 ML FLUSH IV FLUSH SCH ×2 (08:07→21:00)
[2017-01-02] MEDS: ERGOCALCIFEROL (VIT D2) 8,000 UNITS/ML 60 ML BTL PO SCH (08:08)
[2017-01-02 09:18] LABS: AUTOMATED NEUTROPHIL # 7.8 TH/MM3 (1.8-7.7); BASOPHIL # 0.1 TH/MM3 (0-0.2); BASOPHIL % 0.9 % (0.0-2.0); EOSINOPHIL # 0.3 TH/MM3 (0-0.4); EOSINOPHIL % 2.7 % (0.0-4.0); HEMO FLAGS DIFF FINAL; LYMPH % 12.8 % (9.0-44.0); LYMPHOCYTE # 1.4 TH/MM3 (1.0-4.8); MEAN CELL VOLUME 84.7 FL (80.0-100.0); MEAN CORPUSCULAR HGB CONC 33.1 % (32.0-36.0); MONO % 14.1 % (0.0-8.0); NEUT % 69.5 % (16.0-70.0); PLATELET COUNT 129 TH/MM3 (150-450); RED BLOOD COUNT 3.78 MIL/MM3 (4.00-5.30); RED CELL DISTRIBUTION WIDTH 15.7 % (11.6-17.2); WHITE BLOOD COUNT 11.2 TH/MM3 (4.0-11.0)
[2017-01-02 09:19] LABS: INTERNATIONAL NORMALIZED RATIO 1.9 RATIO; PROTHROMBIN TIME - PATIENT 22.1 SEC (9.8-11.6)
[2017-01-02 10:21] LABS: BICARBONATE 28.3 MEQ/L (21.0-32.0); POTASSIUM 3.7 MEQ/L (3.5-5.1)
[2017-01-02 10:39] LABS: MAGNESIUM 1.6 MG/DL (1.5-2.5)
--- NOTE | 2017-01-02 12:54 | RADRPT ---
EXAM DATE/TIME: 01/02/2017 11:30 [facility] COMPARISON: No previous studies available for comparison. INDICATIONS : Dizziness. RADIATION DOSE: 40.30 CTDIvol (mGy) MEDICAL HISTORY : Carcinoma, breast. Cardiovascular disease SURGICAL HISTORY : Hysterectomy. ENCOUNTER: Initial ACUITY: 2 days PAIN SCALE: 0/10 LOCATION: cranial TECHNIQUE: Multiple contiguous axial images were obtained of the head. Using automated exposure control and adj ustment of the mA and/or kV according to patient size, radiation dose was kept as low as reasonably a chievable to obtain optimal diagnostic quality images. DICOM format image data is available electro nically for review and comparison. FINDINGS: CEREBRUM: The ventricles are normal for age. No evidence of midline shift, mass lesion, hemorrhage or acute in farction. 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 No extra- axial fluid collections are seen. POSTERIOR FOSSA: The cerebellum and brainstem are intact. The 4th ventricle is midline. The cerebellopontine angle i s unremarkable. EXTRACRANIAL: The visualized portion of the orbits is intact. SKULL: The calvaria is intact. No evidence of skull fracture. CONCLUSION: 1. 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 2. Otherwise negative Edgardo Ruiz MD on January 02, 2017 at 12:50 Board Certified Radiologist. This report was verified electronically.
--- NOTE | 2017-01-02 13:45 | HHI.PR ---
Subjective Remarks Follow-up orthopedic injury. Discharge held because of dizziness yesterday. Today she is feeling better out of bed to chair with assistance. Discussed with RN Objective Vitals Vital Signs Date Time Temp Pulse Resp B/P (MAP) Pulse Ox O2 Delivery O2 Flow Rate FiO2 01/02/17 12:00 96.4 77 18 116/59 (78) 95 01/02/17 08:00 98.0 75 17 158/87 (110) 93 01/02/17 04:45 99.6 78 18 145/69 (94) 96 01/02/17 01:01 97.8 85 17 126/66 (86) 93 01/01/17 21:31 96 Nasal Cannula 2.00 01/01/17 20:00 97.1 83 18 160/72 (101) 92 01/01/17 16:00 97.4 72 17 107/50 (69) 96 I/O 01/01/17 01/01/17 01/01/17 01/02/17 01/02/17 01/02/17 07:00 15:00 23:00 07:00 15:00 23:00 Intake Total 1000.5 ml 240 ml 120 ml Output Total 200 ml Balance 800.5 ml 240 ml 120 ml Intake Oral 0 ml 240 ml 120 ml IV Total 1000.5 ml Output Urine Total 200 ml # Voids 2 2 2 1 # Bowel Movements 0 0 0 Result Diagram: 01/02/17 0819 01/02/17 0819 Imaging Last Impressions Head CT 01/01/17 0000 Signed Impressions: Service Date/Time: Monday, January 02, 2017 11:30 - CONCLUSION: 1. 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 2. Otherwise negative Edgardo Ruiz MD Elbow X-Ray 12/31/162200 Signed Impressions: Service Date/Time: Saturday, December 31, 2016 22:26 - CONCLUSION: 1. Exam was performed at 2 obliquities but no displaced fracture is seen. Moisés Levy MD Knee X-Ray 12/31/161929 Signed Impressions: Service Date/Time: Saturday, December 31, 2016 19:56 - CONCLUSION: 1. Osteopenia. No acute fracture. Moisés Levy MD Shoulder X-Ray 12/31/161915 Signed Impressions: Service Date/Time: Saturday, December 31, 2016 19:56 - CONCLUSION: 1. Comminuted proximal right humeral fracture. Moisés Levy MD Humerus X-Ray 12/31/161915 Signed Impressions: Service Date/Time: Saturday, December 31, 2016 19:26 - CONCLUSION: 1. Comminuted proximal humeral fracture with mild to moderate displacement. Moisés Levy MD Objective Remarks GENERAL: This is a well-nourished, well-developed patient, in no apparent distress. SKIN: No rashes. Cool and dry. Right proximal humerus area with extensive dark bruising. CARDIOVASCULAR: Irregularly irregular without murmur RESPIRATORY: Clear to auscultation. Breath sounds equal bilaterally. No wheezes , rales, or rhonchi. GASTROINTESTINAL: Abdomen soft, non-tender, nondistended. No guarding. MUSCULOSKELETAL: Extremities without clubbing, cyanosis. No calf tenderness. Right upper arm with pain with minimal movement, swelling noted, still has sensation and movement in fingers and capillary refill is less than 3 seconds. NEUROLOGICAL: Awake and alert. Motor and sensory grossly within normal limits. Normal speech. Procedures none A/P Problem List: (1) Fracture of proximal end of right humerus ICD Code: S42.201A - Unspecified fracture of upper end of right humerus, initial encounter for closed fracture Assessment and Plan Fracture of proximal end of right humerus. Orthopedic surgery recommended nonsurgical management. Non-weightbearing. Elevation of right upper extremity with sling and swath. Pain management with Lortab counseled regarding narcotics. Outpatient follow-up. PT, OT and case management consults Dizziness. HCT without acute findings. Improved. If recurrent obtain orthostatics A. fib. Restart Coumadin keep INR between 2 and 3. INR 1.9 today Chronic medical conditions of hypertension and hyperlipidemia. Stable continue home medications. Hyperglycemia. This is nonfasting. Obtained fasting glucose 99 Mild thrombocytopenia. Outpatient follow-up Anemia secondary to acute blood loss. Monitor. Mild leukocytosis likely reactive. Monitor DVT prophylaxis - SCDs/TEDs. Coumadin Discharge Planning Patient is not a safe discharge to home. Case management assisting SNF discharge Chris Corley MD Jan 02, 2017 13:45
[2017-01-02] MEDS ORDERED: WARFARIN SOD 3 MG TAB PO SCH (14:00)
[2017-01-02] MEDS ORDERED: WARFARIN SOD 4 MG TAB PO SCH (16:00)
[2017-01-02] MEDS: ATORVASTATIN 20 MG TAB PO SCH (21:16)
[2017-01-02] MEDS: GABAPENTIN 300 MG CAP PO SCH (21:17)
[2017-01-02] MEDS: ATENOLOL 100 MG TAB PO SCH (21:19)
[2017-01-03 00:05] VITALS: BP 124/60; PULSE 75; RESP 17; TEMP 97.4; O2SAT 94
--- NOTE | 2017-01-03 07:07 | PD.ORT.PN ---
Subjective Subjective Remarks Pain controlled. Sling and swath in place. Patient is concerned since she lives alone at home with dog. She feels that she needs to go to correction facility Objective Vitals Vital Signs Date Time Temp Pulse Resp B/P (MAP) Pulse Ox O2 Delivery O2 Flow Rate FiO2 01/03/17 00:05 97.4 75 17 124/60 (81) 94 01/02/17 20:40 98.0 75 17 115/50 (71) 95 01/02/17 19:56 95 Nasal Cannula 2.00 01/02/17 16:00 96.0 75 18 97/59 (72) 95 01/02/17 12:00 96.4 77 18 116/59 (78) 95 01/02/17 08:00 98.0 75 17 158/87 (110) 93 I/O 01/02/17 01/02/17 01/02/17 01/03/17 01/03/17 01/03/17 07:00 15:00 23:00 07:00 15:00 23:00 Intake Total 120 ml 480 ml 360 ml Balance 120 ml 480 ml 360 ml Intake Oral 120 ml 480 ml 360 ml # Voids 1 2 1 # Bowel Movements 0 0 0 Result Diagram: 01/02/17 0819 01/02/1719 Other Results Laboratory Tests Test 01/02/17 08:19 Prothromb Time International Ratio 1.9 RATIO Prothrombin Time 22.1 SEC (9.8-11.6) Objective Remarks Right upper extremity: Sling and swath in place. Ecchymosis with mild swelling over shoulder. Distally intact sensation with full extension and flexion of all fingers Assessment & Plan Assessment and Plan 1) Right Proximal humerus Fx -nonoperative treatment -NWB -maintain sling/swathe at all times -pain control -patient lives alone and will need SNF -CM for rehab placement -ortho cleared for DC to SNF -f/u with Dr Albarado or [facility] for repeat xrays in 2 weeks Darron Ford Jr. Jan 03, 2017 07:07
[2017-01-03 07:54] LABS: PROTHROMBIN TIME - PATIENT 23.1 SEC (9.8-11.6)
[2017-01-03 08:00] VITALS: BP 118/58; PULSE 75; RESP 17; TEMP 96.3; O2SAT 93
[2017-01-03] MEDS: MULTIVITAMIN TAB PO SCH (08:18)
[2017-01-03] MEDS: DOCUSATE SODIUM 50 MG/SENNA 8.6 MG TAB PO SCH (08:18)
[2017-01-03] MEDS: cloNIDine HCL 0.1 MG TAB PO SCH (08:18)
[2017-01-03] MEDS: FUROSEMIDE 40 MG TAB PO SCH (08:18)
[2017-01-03] MEDS: SODIUM CHLORIDE 0.9% FLUSH 10 ML FLUSH IV FLUSH SCH (08:19)
[2017-01-03] MEDS: ERGOCALCIFEROL (VIT D2) 8,000 UNITS/ML 60 ML BTL PO SCH (08:19)
[2017-01-03] MEDS: LOSARTAN 50 MG TAB PO SCH (08:19)
[2017-01-03 12:00] VITALS: BP 106/60; PULSE 69; RESP 17; TEMP 97; O2SAT 94
--- NOTE | 2017-01-03 12:20 | HHI.DS ---
Discharge Summary Admission Date Dec 31, 2016 at 22:09 Discharge Date: Jan 03, 2017 Admitting Diagnosis comminuted fracture right proximal humerus, intractable pain, warfar (1) Fracture of proximal end of right humerus ICD Code: S42.201A - Unspecified fracture of upper end of right humerus, initial encounter for closed fracture Diagnosis: Principal Procedures none Brief History - From Admission Ms. Mensah is a pleasant 81 y/o female who was walking her dog and tripped on a pine cone and landed on her right side on 12/31/16 at around 5 p.m. with subsequent severe sharp right arm and right knee pain causing her to be unable to get up. She reports pain is currently managed with PRN Morphine IV but worsens with any movement. Right shoulder and humerus x-ray at [place] [facility] showed comminuted proximal humerus fracture. The patient has a history of atrial fibrillation on Coumadin. INR is 1.6 on admission. The patient is seen in her hospital room after transfer from [place]. The patient is very upset about the experience she had in the [place] emergency room with the physician there. She states that she told him she wanted to be transferred to [facility] where all of her physicians are and he told her she had to come up to the [facility] because he already had a bed for her here. Her PCP, Dr. Baker, does rounds on his own patients at [facility] and knows her very well. She wants to contact his office in the morning to work on a transfer. She states that she is going to refuse surgical intervention here and wants to be allowed to eat. She says she is very hungry. She is alert and oriented, cognitively intact, and capacitated to make her own medical decisions. She is refusing NPO status now and wants me to cancel her orthopedic surgeon consultation. CBC/BMP: 01/02/17 0819 01/02/17 0819 Significant Findings Laboratory Tests Test 12/31/16 19:30 01/02/17 08:19 01/03/17 07:01 Platelet Count 137 TH/MM3 (150-450) 129 TH/MM3 (150-450) Neutrophils (%) (Auto) 76.9 % (16.0-70.0) Monocytes (%) (Auto) 9.5 % (0.0-8.0) 14.1 % (0.0-8.0) Basophils (%) (Auto) 2.6 % (0.0-2.0) Neutrophils # (Auto) 8.3 TH/MM3 (1.8-7.7) 7.8 TH/MM3 (1.8-7.7) Monocytes # (Auto) 1.0 TH/MM3 (0-0.9) 1.6 TH/MM3 (0-0.9) Basophils # (Auto) 0.3 TH/MM3 (0-0.2) Prothrombin Time 18.0 SEC (9.8-11.6) 22.1 SEC (9.8-11.6) 23.1 SEC (9.8-11.6) Blood Urea Nitrogen 31 MG/DL (7-18) 27 MG/DL (7-18) Random Glucose 130 MG/DL (74-106) Estimat Glomerular Filtration Rate 56 ML/MIN (>89) 46 ML/MIN (>89) White Blood Count 11.2 TH/MM3 (4.0-11.0) Red Blood Count 3.78 MIL/MM3 (4.00-5.30) Hemoglobin 10.6 GM/DL (11.6-15.3) Hematocrit 32.0 % (35.0-46.0) Creatinine 1.12 MG/DL (0.50-1.00) Calcium Level 8.4 MG/DL (8.5-10.1) Imaging Last Impressions Head CT 01/01/17 0000 Signed Impressions: Service Date/Time: Monday, January 02, 2017 11:30 - CONCLUSION: 1. 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 2. Otherwise negative Edgardo Ruiz MD Elbow X-Ray 12/31/[id number] Signed Impressions: Service Date/Time: Saturday, December 31, 2016 22:26 - CONCLUSION: 1. Exam was performed at 2 obliquities but no displaced fracture is seen. Moisés Levy MD Knee X-Ray 12/31/[id number] Signed Impressions: Service Date/Time: Saturday, December 31, 2016 19:56 - CONCLUSION: 1. Osteopenia. No acute fracture. Moisés Levy MD Shoulder X-Ray 12/31/[id number] Signed Impressions: Service Date/Time: Saturday, December 31, 2016 19:56 - CONCLUSION: 1. Comminuted proximal right humeral fracture. Moisés Levy MD Humerus X-Ray 12/31/[id number] Signed Impressions: Service Date/Time: Saturday, December 31, 2016 19:26 - CONCLUSION: 1. Comminuted proximal humeral fracture with mild to moderate displacement. Moisés Levy MD PE at Discharge GENERAL: This is a well-nourished, well-developed patient, in no apparent distress. SKIN: No rashes. Cool and dry. Right proximal humerus area with extensive dark bruising. CARDIOVASCULAR: Irregularly irregular without murmur RESPIRATORY: Clear to auscultation. Breath sounds equal bilaterally. No wheezes , rales, or rhonchi. GASTROINTESTINAL: Abdomen soft, non-tender, nondistended. No guarding. MUSCULOSKELETAL: Extremities without clubbing, cyanosis. No calf tenderness. Right upper arm with pain with minimal movement, swelling noted, still has sensation and movement in fingers and capillary refill is less than 3 seconds. NEUROLOGICAL: Awake and alert. Motor and sensory grossly within normal limits. Normal speech. Hospital Course Fracture of proximal end of right humerus. Orthopedic surgery recommended nonsurgical management. Non-weightbearing. Elevation of right upper extremity with sling and swath. Pain management with Lortab counseled regarding narcotics. Outpatient follow-up. PT, OT and case management consults Dizziness. HCT without acute findings. Improved. If recurrent obtain orthostatics Hypertension. Patient developed hypotension which could have been secondary to meds (Percocet and clonidine) patient does not take Coumadin at home. We'll discontinue clonidine and Percocet. BP improved A. fib. Restart Coumadin keep INR between 2 and 3. INR repeat Hyperlipidemia. Stable continue home medication. Hyperglycemia. This is nonfasting. Obtained fasting glucose 99 Mild thrombocytopenia. Outpatient follow-up Anemia secondary to acute blood loss. Monitor. Mild leukocytosis likely reactive. Monitor DVT prophylaxis - SCDs/TEDs. Coumadin Pt Condition on Discharge: Stable Discharge Disposition: Discharge to SNF Discharge Time: > 30 minutes Discharge Instructions DIET: Follow Instructions for: Heart Healthy Diet Activities you can perform: Regular-No Restrictions Activities to Avoid: Driving Follow up Referrals: Orthopedics - 2 Weeks with Marcelino Coronado MD PCP Follow-up - 1 Week New Orders: PT/INR New Medications: Tramadol (Tramadol) 50 Mg Tab 50 MG PO Q6H PRN for PAIN, #12 TAB 0 Refills Continued Medications: Atenolol (Atenolol) 100 Mg Tab 100 MG PO DAILY@1600 for Blood Pressure Management, #30 TAB 0 Refills Atorvastatin (Lipitor) 20 Mg Tab 20 MG PO HS for Cholesterol Management, #30 TAB 0 Refills Ergocalciferol (Vitamin D2) 2,000 Unit Tab 33408 UNITS PO WEEKLY for Nutritional Supplement, TAB 0 Refills Furosemide (Furosemide) 40 Mg Tab 40 MG PO DAILY, #30 TAB 0 Refills Gabapentin (Gabapentin) 300 Mg Cap 300 MG PO HS, #30 CAP 0 Refills Losartan (Cozaar) 100 Mg Tab 100 MG PO DAILY for Blood Pressure Management, #30 TAB 0 Refills Multiple Vitamin (Multiple Vitamin) 1 Tab 1 TAB PO DAILY for Nutritional Supplement, TAB 0 Refills Potassium Chloride ER (Potassium Chloride ER) 10 Meq Tab 10 MEQ PO DAILY for Electrolyte Replacement, #30 TAB 0 Refills Warfarin (Warfarin) 3 Mg Tab 3 MG PO DAILY for Blood Clot Prevention, #30 TAB 0 Refills Warfarin (Warfarin) 4 Mg Tab 4 MG PO DAILY for Blood Clot Prevention, #30 TAB 0 Refills Discontinued Medications: Clonidine (Clonidine) 0.1 Mg Tab 0.1 MG PO BID for Blood Pressure Management, #60 TAB 0 Refills Hydrocodone-Acetaminophen (Hydrocodone-Acetaminophen) 5-325 mg Tab 1 TAB PO Q6H PRN for PAIN, TAB 0 Refills Oxycodone-Acetaminophen (Oxycodone-Acetaminophen) 5-325 mg Tab 1 TAB PO Q6H PRN for PAIN, TAB 0 Refills Chris Corley MD Jan 03, 2017 12:20
[2017-01-03] MEDS ORDERED: TRAM50TA PO (13:19)
== END 2017-01-03 15:01 | DRG 563 ==
LOC: PHED 18:47 → PHEDA 22:09 → N06B 01-01 00:55
PROVIDERS: ADMIT Internal Medicine; ATTEND Internal Medicine
DX: S42.201A Unspecified fracture of upper end of right humerus, initial encounter for closed fracture (principal); I95.9 Hypotension, unspecified; I48.91 Unspecified atrial fibrillation; D69.6 Thrombocytopenia, unspecified; D62 Acute posthemorrhagic anemia; I10 Essential (primary) hypertension; W01.0XXA Fall on same level from slipping, tripping and stumbling without subsequent striking against object, initial encounter; M81.0 Age-related osteoporosis without current pathological fracture; E78.5 Hyperlipidemia, unspecified; M25.561 Pain in right knee; R42 Dizziness and giddiness; H91.91 Unspecified hearing loss, right ear; Y92.480 Sidewalk as the place of occurrence of the external cause; Z79.01 Long term (current) use of anticoagulants; Z87.891 Personal history of nicotine dependence; Z85.3 Personal history of malignant neoplasm of breast; Y93.K1 Activity, walking an animal
CPT/HCPCS: 70450; 73030; 73060; 73070; 73564; 80048; 81001; 82550; 83735; 85025; 85610; J2270; J2405; J7030

== ENCOUNTER 2017-01-20 09:59 | Emergency (ER) | payer MEDICARE, BC ==
[~2017-01-20] VITALS: Ht 162.6 cm; Wt 65.0 kg
[~2017-01-20 09:59] MED LIST changes: +ATEN100T PO; -ATEN1TAB75 PO; -ATOR20TA42 PO; -B12 SHOTS IM; -CENTCHW3 PO; -CLON.1 PO; -COUM4TAB7 PO; +ERGO2000 PO; -FURO1TAB93 PO; +FURO40TA PO; +GABA300C5 PO; +LIPI20TA PO; -LORA0.5T PO; -LORTA5 PO; +MULTTAB67 PO; -POTA-267 PO; +POTA10TA2 PO; +TRAM50TA PO; -VITA400T14 PO; +WARF-20 PO; +WARF-58 PO; -[UNRECOGNIZED DRUG - CODE] PO
[2017-01-20 10:28] VITALS: BP 150/72; PULSE 74; RESP 18; TEMP 98.3; O2SAT 95; O2SAT 96
[2017-01-20] MEDS ORDERED: PHYTONADIONE 10 MG/ML VIAL SQ ONE (10:30)
--- NOTE | 2017-01-20 10:34 | PD ---
HPI Chief Complaint: Nosebleed Time Seen by Provider: 10:25 Travel History International Travel<30 days: No Contact w/Intl Traveler<30days: No Traveled to known affect area: No History of Present Illness HPI 81-year-old female complains of bleeding from left-sided nose. Patient states that she was sneezing this morning and accidentally scratched her left-sided nose with her finger. Patient started having bleeding from the left-sided no since then. Patient has history of atrial fibrillation and on Coumadin. Patient denies any headache. Patient denies any chest pain or shortness of breath. Patient denies abdominal pain. Patient denies any focal weakness or numbness of extremity. Patient recently has history of fracturing her right humerus is in rehabilitation. PFSH Past Medical History Atrial Fibrillation: Yes Cancer: Yes (left breast) Chemotherapy: No Diminished Hearing: Yes (VERY BIG [place] IN RT EAR) Hypertension: Yes Immunizations Current: No Radiation Therapy: Yes ?: Not Menopausal: Yes Past Surgical History Appendectomy: Yes Cholecystectomy: Yes Gynecologic Surgery: Yes (left breast lumpectomy r/t cancer) Hysterectomy: Yes Social History Alcohol Use: No Tobacco Use: No Substance Use: No Allergies-Medications (Allergen,Severity, Reaction): Coded Allergies: diltiazem (Unverified Allergy, Mild, 10/24/16) ezetimibe (Unverified Allergy, Mild, RASH, 10/24/16) hydrocodone (Unverified Allergy, Mild, 10/24/16) ibuprofen (Unverified Allergy, Mild, 10/24/16) levofloxacin (Unverified Allergy, Mild, RASH, 10/24/16) penicillin G (Unverified Allergy, Mild, RASH, 10/24/16) citalopram (Unverified Allergy, Unknown, 10/24/16) sertraline (Unverified Allergy, Unknown, 10/24/16) carvedilol (Unverified Adverse Reaction, Severe, ATRIAL FIBRILLATION EXACERBATION, 10/24/16) amlodipine (Unverified Adverse Reaction, Mild, FEET SWELL, 10/24/16) Uncoded Allergies: CRESTOR (Allergy, Mild, RASH, 06/28/07) NIASPAN (Allergy, Mild, HIVES, 02/16/06) PACERONE (Adverse Reaction, Severe, HAIR FELL OUT, 06/28/07) Reported Meds & Prescriptions Reported Meds & Active Scripts Active Doxycycline Hyclate 100 Mg Cap 100 Mg PO BID Tramadol (Tramadol HCl) 50 Mg Tab 50 Mg PO Q6H PRN Reported Potassium Chloride ER (Potassium Chloride) 10 Meq Tab 10 Meq PO DAILY Multiple Vitamin 1 Tab 1 Tab PO DAILY Cozaar (Losartan Potassium) 100 Mg Tab 100 Mg PO DAILY Gabapentin 300 Mg Cap 300 Mg PO HS Furosemide 40 Mg Tab 40 Mg PO DAILY Vitamin D2 (Ergocalciferol) 2,000 Unit Tab 50,000 Units PO WEEKLY Lipitor (Atorvastatin Calcium) 20 Mg Tab 20 Mg PO HS Atenolol 100 Mg Tab 100 Mg PO DAILY@1600 Warfarin 4 Mg Tab 4 Mg PO DAILY Warfarin 3 Mg Tab 3 Mg PO DAILY Review of Systems General / Constitutional: No: Fever Eyes: No: Visual changes HENT: Positive: Nosebleed, No: Headaches Cardiovascular: No: Chest Pain or Discomfort Respiratory: No: Shortness of Breath Gastrointestinal: No: Abdominal Pain Genitourinary: No: Dysuria Musculoskeletal: No: Pain Skin: No Rash Neurologic: No: Weakness Psychiatric: No: Depression Endocrine: No: Polydipsia Hematologic/Lymphatic: No: Easy Bruising Physical Exam Narrative GENERAL: Well-nourished, well-developed patient. SKIN: Focused skin assessment warm/dry. HEAD: Normocephalic. EYES: No scleral icterus. No injection or drainage. Patient has active bleeding from the left-sided nose. Unable to visualize the source of the bleeding. NECK: Supple, trachea midline. No JVD or lymphadenopathy. CARDIOVASCULAR: Regular rate and rhythm without murmurs, gallops, or rubs. RESPIRATORY: Breath sounds equal bilaterally. No accessory muscle use. GASTROINTESTINAL: Abdomen soft, non-tender, nondistended. MUSCULOSKELETAL: No cyanosis, or edema. BACK: Nontender without obvious deformity. No CVA tenderness. Neurologic exam normal. Data Data Last Documented VS Vital Signs Date Time Temp Pulse Resp B/P (MAP) Pulse Ox O2 Delivery O2 Flow Rate FiO2 01/20/17 10:28 18 95 Room Air 01/20/17 10:28 98.3 74 Orders Orders Complete Blood Count With Diff (01/20/17 10:25) Basic Metabolic Panel (Bmp) (01/20/17 10:25) Prothrombin Time / Inr (Pt) (01/20/17 10:25) Act Partial Throm Time (Ptt) (01/20/17 10:25) Thyroid Stimulating Hormone (01/20/17 10:25) Iv Access Insert/Monitor (01/20/17 10:25) Ecg Monitoring (01/20/17 10:25) Oximetry (01/20/17 10:25) Phytonadione Inj (Vitamin K Inj) (01/20/17 10:30) Doxycycline (Vibramycin) (01/20/17 12:15) Labs Laboratory Tests Test 01/20/17 10:36 White Blood Count 10.3 TH/MM3 Red Blood Count 4.56 MIL/MM3 Hemoglobin 13.1 GM/DL Hematocrit 38.7 % Mean Corpuscular Volume 84.9 FL Mean Corpuscular Hemoglobin 28.7 PG Mean Corpuscular Hemoglobin Concent 33.8 % Red Cell Distribution Width 16.6 % Platelet Count 220 TH/MM3 Mean Platelet Volume 10.3 FL Neutrophils (%) (Auto) 75.5 % Lymphocytes (%) (Auto) 10.9 % Monocytes (%) (Auto) 11.1 % Eosinophils (%) (Auto) 1.6 % Basophils (%) (Auto) 0.9 % Neutrophils # (Auto) 7.8 TH/MM3 Lymphocytes # (Auto) 1.1 TH/MM3 Monocytes # (Auto) 1.1 TH/MM3 Eosinophils # (Auto) 0.2 TH/MM3 Basophils # (Auto) 0.1 TH/MM3 CBC Comment DIFF FINAL Differential Comment Prothrombin Time 20.5 SEC Prothromb Time International Ratio 1.8 RATIO Activated Partial Thromboplast Time 33.9 SEC Blood Urea Nitrogen 22 MG/DL Creatinine 0.94 MG/DL Random Glucose 115 MG/DL Calcium Level 9.0 MG/DL Sodium Level 138 MEQ/L Potassium Level 3.5 MEQ/L Chloride Level 101 MEQ/L Carbon Dioxide Level 31.3 MEQ/L Anion Gap 6 MEQ/L Estimat Glomerular Filtration Rate 57 ML/MIN Thyroid Stimulating Hormone 3rd Gen 1.090 uIU/ML MDM Medical Decision Making Medical Screen Exam Complete: Yes Emergency Medical Condition: Yes Interpretation(s) 11:51 AM. CBC WBC 10.3. Hemoglobin 13.1 hematocrit 38.7. 75 neutrophil. BMP within normal limit. BUN 22. GFR 57. INR 1.8. Differential Diagnosis Differential diagnosis including epistaxis, Coumadin toxicity. Narrative Course 81-year-old female with nosebleed. Patient has history of atrial ablation on Coumadin. Vitamin K 5 milligrams subcutaneous given. Rhino Rocket inserted. Patient stopped bleeding. Patient does not want to be admitted. Patient wants to go home and follow-up with her physician. Doxycycline 100 mg by mouth given. I spoke with Dr. Valles's physician design assistant. Patient will be follow- up at the local rehabilitation facility. Diagnosis Primary Impression: Epistaxis Additional Impression: Anticoagulation adequate Admitting Information Admitting Physician Requests: Observation Patient Instructions: General Instructions Additional Instructions: Take doxycycline as directed. Follow-up with ENT in 3 days for packing removal. Return immediately if increasing bleeding. Hold Coumadin for 3 days. Med/Other Pt SpecificInfo: Prescription(s) given, Med Stopped Scripts Doxycycline Hyclate (Doxycycline Hyclate) 100 Mg Cap 100 MG PO BID for Infection, #10 CAP 0 Refills Prov: Nitin Weber MD 01/20/17 Disposition: 01 DISCHARGE HOME Condition: Stable Nitin Weber MD Jan 20, 2017 10:34
[2017-01-20 11:07] LABS: AUTOMATED NEUTROPHIL # 7.8 TH/MM3 (1.8-7.7); BASOPHIL # 0.1 TH/MM3 (0-0.2); BASOPHIL % 0.9 % (0.0-2.0); EOSINOPHIL # 0.2 TH/MM3 (0-0.4); EOSINOPHIL % 1.6 % (0.0-4.0); HEMATOCRIT 38.7 % (35.0-46.0); HEMO FLAGS DIFF FINAL; LYMPH % 10.9 % (9.0-44.0); LYMPHOCYTE # 1.1 TH/MM3 (1.0-4.8); MEAN CELL VOLUME 84.9 FL (80.0-100.0); MEAN CORPUSCULAR HEMOGLOBIN 28.7 PG (27.0-34.0); MEAN CORPUSCULAR HGB CONC 33.8 % (32.0-36.0); MONO % 11.1 % (0.0-8.0); NEUT % 75.5 % (16.0-70.0); PLATELET COUNT 220 TH/MM3 (150-450); RED BLOOD COUNT 4.56 MIL/MM3 (4.00-5.30); RED CELL DISTRIBUTION WIDTH 16.6 % (11.6-17.2); WHITE BLOOD COUNT 10.3 TH/MM3 (4.0-11.0)
[2017-01-20 11:29] LABS: APTT (PATIENT) 33.9 SEC (24.3-30.1); INTERNATIONAL NORMALIZED RATIO 1.8 RATIO; PROTHROMBIN TIME - PATIENT 20.5 SEC (9.8-11.6)
[2017-01-20 11:32] LABS: BICARBONATE 31.3 MEQ/L (21.0-32.0); POTASSIUM 3.5 MEQ/L (3.5-5.1)
[2017-01-20] MEDS ORDERED: DOXY100C PO (12:06)
[2017-01-20] MEDS ORDERED: DOXYCYCLINE HYCLATE 100 MG CAP PO ONE (12:15)
== END 2017-01-20 13:34 | disposition home or self-care (01) ==
LOC: NEPE 09:59
DX: R04.0 Epistaxis (principal); I48.91 Unspecified atrial fibrillation; I10 Essential (primary) hypertension; Z79.01 Long term (current) use of anticoagulants; Z79.899 Other long term (current) drug therapy; Z88.8 Allergy status to other drugs, medicaments and biological substances; Z88.5 Allergy status to narcotic agent; Z88.6 Allergy status to analgesic agent; Z88.0 Allergy status to penicillin
CPT/HCPCS: 30901; 80048; 84443; 85025; 85610; 85730; 96372; 99284; J3430